=== PATIENT | female | born 1990 | race African-American/Black ===

== ENCOUNTER 2018-01-08 21:03 | Emergency (ER) | payer OTHER ==
[~2018-01-08] VITALS: Ht 160 cm; Wt 79.9 kg
[2018-01-08 21:10] VITALS: BP 140/67
--- NOTE | 2018-01-08 21:25 | PHYS DOC ---
Past Medical History Past Medical History: No Pertinent History Past Surgical History: Other Additional Past Surgical Histo: breast reduction Alcohol Use: Rarely Drug Use: Marijuana Adult General Chief Complaint Chief Complaint: EYE PROBLEMS HPI HPI Patient is a 28 year old female who presents with redness to the right eye. Patient reports about 5 days ago she was running around her house "acting stupid ". Patient reports her bifold closet door was leaning up against the wall and not attached. She reports when she went by she bumped it and it fell, striking her in the face. Patient reports when she woke up the next morning her eye was red. She denies any pain or blurred vision. [] Review of Systems Review of Systems Constitutional: Denies fever or chills [] Eyes: Denies change in visual acuity. Reports redness of the right eye. Denies eye pain [] Cardiovascular: No additional information not addressed in HPI [] Integument: Denies rash or skin lesions [] Neurologic: Denies headache, focal weakness or sensory changes [] All other systems were reviewed and found to be within normal limits, except as documented in this note. Allergies Allergies Allergies Coded Allergies Type Severity Reaction Last Updated Verified No Known Drug Allergies 01/08/18 No Physical Exam Physical Exam Constitutional: Well developed, well nourished, no acute distress, non-toxic appearance. [] HENT: Normocephalic, atraumatic Eyes: PERRLA, EOMI, right subconjunctival hemorrhage present Neck: Normal range of motion, no tenderness, supple, no stridor. [] Skin: Warm, dry, no erythema, no rash. [] Neurologic: Alert and oriented X 3, normal motor function, normal sensory function, no focal deficits noted. [] Psychologic: Affect normal, judgement normal, mood normal. [] Current Patient Data Vital Signs Vital Signs Date Time Temp Pulse Resp B/P (MAP) Pulse Ox O2 Delivery O2 Flow Rate FiO2 01/08/18 21:10 99.4 75 16 140/67 (91) 100 Room Air 99.4 EKG EKG [] Radiology/Procedures Radiology/Procedures [] Course & Med Decision Making Course & Med Decision Making Pertinent Labs and Imaging studies reviewed. (See chart for details) Plan: Supportive care, follow up with PCP, return precautions reviewed Reina Disclaimer Dragon Disclaimer This electronic medical record was generated, in whole or in part, using a voice recognition dictation system. Departure Departure Impression: Primary Impression: Subconjunctival hemorrhage of right eye Disposition: HOME, SELF-CARE Condition: GOOD Referrals: NON,STAFF (PCP) Patient Instructions: Subconjunctival Hemorrhage YAMILEX PATEL RIM TURNING FINISHER Jan 08, 2018 21:25
== END 2018-01-08 21:34 | disposition home or self-care (01) ==
LOC: ER 21:03
DX: H11.31 Conjunctival hemorrhage, right eye (principal)
CPT/HCPCS: 99281

== ENCOUNTER 2018-04-25 04:36 | Emergency (ER) | payer OTHER ==
[~2018-04-25] VITALS: Ht 157.5 cm; Wt 78.9 kg
[2018-04-25] MEDS ORDERED: fentaNYL PF VIAL 100 MCG/2 ML VIAL ONE (05:08)
[2018-04-25] MEDS: fentaNYL PF VIAL 100 MCG/2 ML VIAL IV ONE (05:33)
--- NOTE | 2018-04-25 05:35 | PHYS DOC ---
Past Medical History Past Medical History: No Pertinent History Past Surgical History: Other Additional Past Surgical Histo: breast reduction Alcohol Use: Rarely Drug Use: Marijuana Adult General Chief Complaint Chief Complaint: VAGINAL BLEEDING HPI HPI Patient is a 28 year old female who presents with possible miscarriage. Patient is a . She estimates to be at somewhere around 10 weeks gestation by her last menstrual period. She was evaluated recently by her primary nail machine operator, Dr. Wells, and there was concern that the patient possibly would have miscarriage based on ultrasound findings present in the office. This was 3 days earlier. Since that time, the patient has had persistent bleeding that has worsened. She has had crampy pelvic pain which she states feels like contractions. Her symptoms worsened overnight so she decided to come to the emergency department. No fever or chills. No lightheadedness. No palpitations. Denies urinary symptoms. Review of Systems Review of Systems Constitutional: Denies fever or chills Eyes: Denies HENT: Denies Respiratory: Denies Cardiovascular: denies GI: pelvic cramps : Denies dysuria Musculoskeletal: Denies back pain Integument: Denies rash Neurologic: Denies headache Endocrine: Denies polyuria All other systems were reviewed and found to be within normal limits, except as documented in this note. Current Medications Current Medications Current Medications Medications (Trade) Dose Ordered Sig/Lexa Start Time Stop Time Status Last Admin Dose Admin Fentanyl Citrate (Fentanyl 2ml Vial) 75 mcg 1X ONCE 04/25/18 06:00 04/25/18 06:23 DC Allergies Allergies Allergies Coded Allergies Type Severity Reaction Last Updated Verified No Known Drug Allergies 01/08/18 No Physical Exam Physical Exam Constitutional: Well developed, well nourished, no acute distress, non-toxic appearance HENT: Normocephalic, atraumatic Eyes: PERRLA Neck: Normal range of motion Cardiovascular:Heart rate regular rhythm, no murmur Lungs & Thorax: Bilateral breath sounds Abdomen: Bowel sounds normal, soft Skin: Warm, dry, no erythema Back: No tenderness Extremities: No tenderness Neurologic: Alert and oriented X 3, normal motor function Psychologic: Affect normal, judgement normal Current Patient Data Vital Signs Vital Signs Date Time Temp Pulse Resp B/P (MAP) Pulse Ox O2 Delivery O2 Flow Rate FiO2 04/25/18 04:41 98.9 58 22 125/63 (83) 100 Room Air 98.9 Lab Values Laboratory Tests Test 04/25/18 05:30 04/25/18 05:34 04/25/18 06:15 White Blood Count 13.2 x10^3/uL (4.0-11.0) H Red Blood Count 4.05 x10^6/uL (3.50-5.40) Hemoglobin 11.6 g/dL (12.0-15.5) L Hematocrit 35.3 % (36.0-47.0) L Mean Corpuscular Volume 87 fL (79-100) Mean Corpuscular Hemoglobin 29 pg (25-35) Mean Corpuscular Hemoglobin Concent 33 g/dL (31-37) Red Cell Distribution Width 13.9 % (11.5-14.5) Platelet Count 291 x10^3/uL (140-400) Neutrophils (%) (Auto) 85 % (31-73) H Lymphocytes (%) (Auto) 9 % (24-48) L Monocytes (%) (Auto) 4 % (0-9) Eosinophils (%) (Auto) 0 % (0-3) Basophils (%) (Auto) 1 % (0-3) Neutrophils # (Auto) 11.2 x10^3uL (1.8-7.7) H Lymphocytes # (Auto) 1.2 x10^3/uL (1.0-4.8) Monocytes # (Auto) 0.6 x10^3/uL (0.0-1.1) Eosinophils # (Auto) 0.1 x10^3/uL (0.0-0.7) Basophils # (Auto) 0.1 x10^3/uL (0.0-0.2) Platelet Estimate Pending Maternal Serum HCG Beta Subunit 4347 mIU/mL (0-5) H POC Urine HCG, Qualitative Hcg positive (Negative) Sodium Level 140 mmol/L (136-145) Potassium Level 3.9 mmol/L (3.5-5.1) Chloride Level 105 mmol/L (98-107) Carbon Dioxide Level 28 mmol/L (21-32) Anion Gap 7 (6-14) Blood Urea Nitrogen 5 mg/dL (7-20) L Creatinine 0.6 mg/dL (0.6-1.0) Estimated GFR (Cockcroft-Gault) 146.2 Glucose Level 95 mg/dL (70-99) Calcium Level 8.6 mg/dL (8.5-10.1) Laboratory Tests 04/25/18 05:30 Laboratory Tests 04/25/18 06:15 EKG EKG [] Radiology/Procedures Radiology/Procedures Pelvic US: (after delivery of products of conception) MPRESSION: 1. There is some heterogeneity of the endometrial stripe which measures up to about 12 mm with some suspected fluid within. This mild prominence could be secondary to some blood products within the region but cannot exclude a small amount of retained products. Follow-up could be obtained to ensure that there is appropriate thinning of the endometrium. There is a tiny focus of fluid within the measuring up to 3 mm. Could be secondary to a small amount of fluid within the endometrial stripe or a small cyst within the region. Given that the patient had a recent delivery causes such as early gestational sac considered unlikely. Given that this is at the lower uterine segment causes such as nabothian cyst also a possible cause. 2. Small amount of free fluid is seen within the pelvis with a possible septation within. Course & Med Decision Making Course & Med Decision Making Pertinent Labs and Imaging studies reviewed. (See chart for details) Patient is seen in the emergency department for possible miscarriage. Pelvic exam was completed after IV pain medications were given. Products of conception were present at the cervical os. The patient was having pain and cramps. Forceps were used to gently remove the products. This was without difficulty. The patient tolerated well. Products of conception were sent to pathology. Patient has f/u appt with Dr. Wells scheduled for later today. Discussed with Dr. Burris, flight control specialist PROTECTIVE SIGNAL INSTALLER HELPER, who recommended pain medications but no additional therapies at this time. Plan is for d/c home. All results are discussed with the patient and all of her questions are answered prior to discharge. Dragon Disclaimer Dragon Disclaimer This electronic medical record was generated, in whole or in part, using a voice recognition dictation system. Departure Departure Disposition: HOME, SELF-CARE Condition: GOOD Referrals: CECIL WELLS MD (PCP) JOSE DE JESUS AREVALO DO Apr 25, 2018 05:35
[2018-04-25 06:00] VITALS: BP 115/55
[2018-04-25] MEDS ORDERED: fentaNYL PF VIAL 100 MCG/2 ML VIAL IV ONE (06:00)
[2018-04-25 06:31] LABS: CALCIUM 8.6 mg/dL (8.5-10.1); CREATININE 0.6 mg/dL (0.6-1.0); GFR 146.2; POTASSIUM 3.9 mmol/L (3.5-5.1)
[2018-04-25 06:36] LABS: BASO # 0.1 x10^3/uL (0.0-0.2); BASO % 1 % (0-3); EOS # 0.1 x10^3/uL (0.0-0.7); EOS % 0 % (0-3); HEMATOCRIT 35.3 % (36.0-47.0); HEMOGLOBIN 11.6 g/dL (12.0-15.5); LYMPH # 1.2 x10^3/uL (1.0-4.8); LYMPH % 9 % (24-48); MEAN CORPUSCULAR HEMOGLOBIN 29 pg (25-35); MEAN CORPUSCULAR HGB CONC 33 g/dL (31-37); MEAN CORPUSCULAR VOLUME 87 fL (79-100); MONO # 0.6 x10^3/uL (0.0-1.1); MONO % 4 % (0-9); NEUT # 11.2 x10^3uL (1.8-7.7); NEUT % 85 % (31-73); PLATELET COUNT 291 x10^3/uL (140-400); RED BLOOD COUNT 4.05 x10^6/uL (3.50-5.40); RED CELL DISTRIBUTION WIDTH 13.9 % (11.5-14.5); WHITE BLOOD COUNT 13.2 x10^3/uL (4.0-11.0)
--- NOTE | 2018-04-25 06:46 | RAD ---
INDICATION: s/p delivered 8-10weeks fetus eval retain product COMPARISON: None. TECHNIQUE: Grayscale and color ultrasound images uterus and adnexa. Transabdominal and transvaginal images obtained. FINDINGS: Uterus: 110 x 54 x 48 mm. Endometrial Stripe: 12 mm. There is some heterogeneity of the endometrial stripe. Some free fluid is seen within the pelvis. There may be a septation within. Right Ovary: 32 x 25 x 17 mm. 6 mm cystic focus within. Could be a dominant follicle or a tiny cyst. Left Ovary: 14 x 12 x 12 mm. Vascular flow identified to bilateral ovaries. IMPRESSION: 1. There is some heterogeneity of the endometrial stripe which measures up to about 12 mm with some suspected fluid within. This mild prominence could be secondary to some blood products within the region but cannot exclude a small amount of retained products. Follow-up could be obtained to ensure that there is appropriate thinning of the endometrium. There is a tiny focus of fluid within the measuring up to 3 mm. Could be secondary to a small amount of fluid within the endometrial stripe or a small cyst within the region. Given that the patient had a recent delivery causes such as early gestational sac considered unlikely. Given that this is at the lower uterine segment causes such as nabothian cyst also a possible cause. 2. Small amount of free fluid is seen within the pelvis with a possible septation within. Electronically signed by: Khoa Rey MD (04/25/2018 6:43 AM) [facility]
[2018-04-25 09:46] LABS: % LYMPHS 14 % (24-48); % MONOS 6 % (0-10); % SEGS 80 % (35-66); PLT ESTIMATE ADEQUATE (ADEQUATE)
--- NOTE | 2018-04-27 14:08 | PATHOLOGY ---
[facility] Accession Number: [id number] . 01 Material submitted: . PRODUCTS OF CONCEPTION DELIVERED FROM UTERUS . 01 Clinical history: . Spontaneous miscarriage . 02 Diagnosis: Uterine contents: - Products of conception, comprised of immature chorionic villi showing focal prominent hydropic changes and intervillous hemorrhage, and segments of decidual tissue showing foci of hemorrhage, necrosis, and acute inflammation. . (JPM:mm; 04/27/18) [facility]/04/27/2018 . 02 Comment: The majority of the chorionic villi are of normal caliber. Some of the villi show prominent hydropic changes. Block A1 will be sent for DNA ploidy studies to rule out a partial mole. These results will be reported separately. . (JPM:mm; 04/27/18) . 02 Electronically signed: . Jason Baptiste MD, Pathologist NPI- [id number] . 01 Gross description: . Received in an unidentified bloody fluid labeled "Luisa Maldonado, products of conception," are multiple fragments of pink-abraham to hemorrhagic soft tissue measuring 9.0 x 5.8 x 0.8 cm in greatest dimensions. Serial sectioning reveals abundant blood clot on cut surfaces. tissue is not identified grossly. Vesicular structures are absent. Show Worker tissue is submitted in cassettes A1 through A3. ([facility]; 04/26/2018) XDC/XDC . 02 Pathologist provided ICD-10: O02.89 . 02 CPT . 275530 Specimen Comment: A courtesy copy of this report has been sent to Specimen Comment: [phone], , . Specimen Comment: Report sent to ,DR DELATORRE / DR BRAN Performed at: 01 [facility] [address], [place], [place] [id number] MD Bj Simmons MD Phone: [phone] Performed at: 02 [facility] [address] [place], [place] [id number] MD Jason Baptiste MD Phone: [phone]
== END 2018-04-25 07:46 | disposition home or self-care (01) ==
LOC: ER 04:36
DX: O46.91 Antepartum hemorrhage, unspecified, first trimester (principal); R10.2 Pelvic and perineal pain
CPT/HCPCS: 36415; 76817; 80048; 81025; 84702; 85007; 85025; 86850; 86900; 86901; 88305; 96374; 99284; J3010